=== PATIENT | male | born 1995 | race African-American/Black ===

== ENCOUNTER 2018-09-07 12:01 | Emergency (ER) | payer MEDICAID ==
[~2018-09-07] VITALS: Ht 167.6 cm; Wt 73.5 kg
[2018-09-07 12:10] VITALS: BP 116/72
--- NOTE | 2018-09-07 12:30 | NUR ---
ED Nurse Note: Patient presents to ER due to flu-like symptoms (cough with yellow sputum, chest congestion). Provided mask. No cough noted at this time. Reports no fever or chills. Patient tolerating oral intake without problem. Patient also c/o rash over the left upper arm spreading to back. hx of eczema. Reports no use of meds at this time. No facial griamcing or guarding noted.
[2018-09-07] MEDS ORDERED: PROMETHAZINE-D118 ML ORAL (13:40)
[2018-09-07] MEDS ORDERED: IBUPROFEN600 MG ORAL (13:40)
[2018-09-07] MEDS ORDERED: AMOXICILLIN500 MG ORAL (13:43)
[2018-09-07 13:50] VITALS: BP 116/72
--- NOTE | 2018-09-07 13:53 | NUR ---
ED Discharge Note: Patient is being discharged from medical care. Patient awake, alert, oriented x 4. Regular, unlabored breathing noted. D/C instruction and prescription given to patient. Patient verbalized understanding of it.
--- NOTE | 2018-09-07 14:16 | Diagnostic Imaging Report ---
EXAM: XR Chest, 1 View CLINICAL HISTORY: COUGH TECHNIQUE: Frontal view of the chest. COMPARISON: None FINDINGS: Hardware: None. Lungs/pleura: Normal. No focal consolidation. No pleural effusion or pneumothorax. Heart/mediastinum: Normal. No cardiomegaly. Soft tissues: Unremarkable. Bones: No acute fracture. Upper abdomen: Normal. IMPRESSION: No acute disease identified.
[2018-09-07] MEDS ORDERED: AFRIN NASAL SPR30 ML NASAL (15:10)
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
== END 2018-09-07 13:50 | disposition home or self-care (01) ==
LOC: EMR 13:10
DX: J02.9 Acute pharyngitis, unspecified (principal); S09.92XA Unspecified injury of nose, initial encounter; X58.XXXA Exposure to other specified factors, initial encounter; Y92.9 Unspecified place or not applicable
CPT/HCPCS: 71045; 99283

== ENCOUNTER 2018-09-20 12:13 | Emergency (ER) | payer MEDICAID ==
[~2018-09-20] VITALS: Ht 172.7 cm; Wt 68.0 kg
[~2018-09-20 12:13] MED LIST: AFRIN NASAL SPR30 ML NASAL; AMOXICILLIN500 MG ORAL; IBUPROFEN600 MG ORAL; PROMETHAZINE-D118 ML ORAL
[2018-09-20 12:17] VITALS: BP 115/60
[2018-09-20] MEDS ORDERED: PROAIR HFA8.5 GM INH (12:31)
[2018-09-20] MEDS ORDERED: PROMETHAZI6.25 MG/1 ORAL (12:31)
--- NOTE | 2018-09-20 12:31 | Emergency Room Report ---
History of Present Illness General Chief Complaint: Upper Respiratory Illness Source: Patient (Ricardo Webster) Present Illness HPI 23-year-old male with no significant past medical history here complaining of over 2 weeks of cough and congestion postnasal injury. Patient was seen here at [facility] on September 07, 2018 after a nasal injury and fracture was ruled out. Patient was diagnosed with pharyngitis and discharged with amoxicillin, Flonase, and advised to take [id number] decongestants. Patient however complains of worsening cough and phlegm production as well as nighttime wheezing. Patient denies smoking tobacco, marijuana, and all other drug use however marijuana can be smelled on him very clearly. Patient denies chest pain , shortness of breath, palpitation, abdominal pain, nausea vomiting. Denies all other associated symptoms and is up-to-date with immunization. (Ricardo Webster) Allergies: Coded Allergies: No Known Allergies (Unverified , 09/07/18) Patient History Past Medical History: see triage record Past Surgical History: unable to obtain Pertinent Family History: none Social History: Reports: smoking - marijuana Immunizations: UTD Reviewed Nursing Documentation: PMH: Agreed; PSxH: Agreed (Ricardo Webster) Nursing Documentation-PMH Past Medical History: No Stated History (Ricardo Webster) Review of Systems All Other Systems: negative except mentioned in HPI (Ricardo Webster) Physical Exam Vital Signs Date Time Temp Pulse Resp B/P (MAP) Pulse Ox O2 Delivery O2 Flow Rate FiO2 09/20/18 12:17 98.6 61 18 115/60 (78) 96 Room Air Sp02 EP Interpretation: reviewed, normal General Appearance: normal inspection, well appearing, no apparent distress, alert Head: normocephalic, atraumatic Eyes: bilateral eye normal inspection, bilateral eye PERRL ENT: normal ENT inspection, hearing grossly normal, normal pharynx, no angioedema, TMs + canals normal, uvula midline Neck: normal inspection, full range of motion, supple, no meningismus, no bony tend Respiratory: normal inspection, chest non-tender, lungs clear, normal breath sounds, no rhonchi, no retraction, no wheezing Cardiovascular #1: normal inspection, regular rate, rhythm, no murmur Gastrointestinal: normal inspection, non tender, soft, no mass Genitourinary: no CVA tenderness Musculoskeletal: normal inspection, back normal, digits/nails normal Neurologic: normal inspection, alert, oriented x3 Psychiatric: normal inspection, judgement/insight normal Skin: no rash, normal color Lymphatic: normal inspection, no adenopathy (Ricardo Webster) Medical Decision Making PA Attestation All my diagnosis and treatment plans were reviewed ad discussed with my supervising physician Dr. Clemente (Ricardo Webster) PA Attestation I discussed the care of the patient with Ricardo ORELLANA on 09/20/2018. I agree with the findings and plan as documented in the note. (Gurjit Clemente M.D.) Diagnostic Impression: Primary Impression: Upper respiratory infection ER Course 23-year-old male with no significant past medical history here complaining of over 2 weeks of cough and congestion postnasal injury. Patient was seen here at [place] [facility] on September 07, 2018 after a nasal injury and fracture was ruled out. Patient was diagnosed with pharyngitis and discharged with amoxicillin, Flonase, and advised to take [id number] decongestants. Patient however complains of worsening cough and phlegm production as well as nighttime wheezing. Patient denies smoking tobacco, marijuana, and all other drug use however marijuana can be smelled on him very clearly. Patient denies chest pain , shortness of breath, palpitation, abdominal pain, nausea vomiting. Denies all other associated symptoms and is up-to-date with immunization. Ddx considered but are not limited to: strep pharyngitis, URI, tonsilitis, peritonsillar absacess, influneza Vital signs: are WNL, pt. is afebrile H&PE are most consistent with: Upper respiratory infection ORDERS: Albuterol inhaler, Phenergan ED INTERVENTIONS: None required at this time. DISCHARGE: At this time pt. is stable for d/c to home. Will provide printed patient care instructions, and any necessary prescriptions. Care plan and follow up instructions have been discussed with the patient prior to discharge. I advised the patient to follow-up with her primary care provider as this is becoming chronic and he denies that he smokes marijuana however it is very clear that he does (Ricardo Webster) Last Vital Signs Date Time Temp Pulse Resp B/P (MAP) Pulse Ox O2 Delivery O2 Flow Rate FiO2 09/20/18 12:17 98.6 61 18 115/60 (78) 96 Room Air (Ricardo Webster) Disposition: HOME, SELF-CARE Condition: Stable Scripts Albuterol Sulfate* (PROAIR HFA*) 8.5 Gm Hfa.aer.ad 2 PUFFS INH Q6H, #8.5 GM 0 Refills Prov: Ricardo Webster 09/20/18 Promethazine Hcl (PROMETHAZINE HCL*) 6.25 Mg/5 Ml Syrup 5 ML ORAL Q6H, #120 ML 0 Refills Prov: Ricardo Webster 09/20/18 Patient Instructions: Upper Respiratory Infection, Adult Additional Instructions: Take medication as directed follow-up with the primary care provider if symptoms continue that he may be becoming chronic and you will need further assessment and referrals. Ricardo Webster Sep 20, 2018 12:31 Gurjit Clemente M.D. Sep 20, 2018 16:07
[2018-09-20 12:41] VITALS: BP 115/60
--- NOTE | 2018-09-20 12:42 | NUR ---
Patient was evaluated, treated and discharged with aftercare instructions by MD/PA
== END 2018-09-20 12:43 | disposition home or self-care (01) ==
LOC: EMR 12:40
DX: J06.9 Acute upper respiratory infection, unspecified (principal)
CPT/HCPCS: 99282

== ENCOUNTER 2018-10-01 10:34 | Emergency (ER) | payer MEDICAID ==
[~2018-10-01] VITALS: Ht 172.7 cm; Wt 68.0 kg
[~2018-10-01 10:34] MED LIST changes: +PROAIR HFA8.5 GM INH; +PROMETHAZI6.25 MG/1 ORAL
[2018-10-01 10:38] VITALS: BP 110/55
--- NOTE | 2018-10-01 10:43 | NUR ---
ED Nurse Note: Patient walked into ED in the need of doctor's note to clear him to work. patient reports he had a URI a week ago. patient reports it is getting better now. patient is alert awake x4 ambulatory breathing unlabored and even.
[2018-10-01] MEDS ORDERED: ADULT WAL-100 MG/5 M ORAL (11:01)
[2018-10-01 11:06] VITALS: BP 110/55
--- NOTE | 2018-10-01 11:06 | NUR ---
ER DISCHARGE NOTE: Patient is cleared to be discharged per ERMD DR CORONA, pt is aox4, on room air, with stable vital signs. pt was given dc and prescription instructions, pt was able to verbalize understanding, pt id band removed without complications. pt is able to ambulate with steady gait. pt took all belongings.
--- NOTE | 2018-10-01 11:07 | Emergency Room Report ---
History of Present Illness General Chief Complaint: Upper Respiratory Illness Source: Patient Present Illness HPI Patient is a 23-year-old male who presented for medical clearance. Patient had recent increased nasal congestion as well as cough. Patient had initially been having some sputum. This had resolved after antibiotic treatment. Patient reported having some cough at bedtime but does not have any daytime cough. 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 He denies any fevers or hemoptysis. Patient states he had been taking antibiotics and had finished a course. Allergies: Coded Allergies: No Known Allergies (Unverified , 09/07/18) Patient History Past Medical History: see triage record Reviewed Nursing Documentation: PMH: Agreed; PSxH: Agreed Nursing Documentation-PMH Past Medical History: No Stated History Review of Systems All Other Systems: negative except mentioned in HPI Physical Exam Vital Signs Date Time Temp Pulse Resp B/P (MAP) Pulse Ox O2 Delivery O2 Flow Rate FiO2 10/01/18 10:38 97.0 58 19 110/55 97 Room Air General Appearance: well appearing, no apparent distress, alert, GCS 15 Head: normocephalic, atraumatic ENT: hearing grossly normal, normal voice Neck: full range of motion, supple Respiratory: lungs clear, no respiratory distress, speaking full sentences Cardiovascular #1: normal inspection Musculoskeletal: normal inspection Neurologic: normal inspection, alert, oriented x3, responsive, vice president diversity III-XII nml as tested, normal gait Psychiatric: mood/affect normal Skin: no rash Medical Decision Making Diagnostic Impression: Primary Impression: Upper respiratory infection ER Course Patient presented for medical clearance. Differential diagnosis include was not limited to upper respiratory infection, allergic rhinitis, viral respiratory infection, pneumonia among others. Patient has a benign exam and does not appear to require any further imaging or laboratory testing at this time. Patient appears to be cleared for work. He does not appear to require any further medical treatment however he was given prescription for guaifenesin to take at bedtime for cough. He was advised to follow-up with his doctor as needed. Last Vital Signs Date Time Temp Pulse Resp B/P (MAP) Pulse Ox O2 Delivery O2 Flow Rate FiO2 10/01/18 10:47 58 19 Room Air 10/01/18 10:38 97.0 110/55 (73) 97 Status: improved Disposition: HOME, SELF-CARE Condition: Stable Scripts Guaifenesin* (ADULT WAL-TUSSIN*) 100 Mg/5 Ml Liquid 5 ML ORAL Q4H, #120 ML Prov: Venancio Solis MD 10/01/18 Patient Instructions: Upper Respiratory Infection, Adult Additional Instructions: Patient may return to work. Return if worse. Venancio Solis MD Oct 01, 2018 11:07
== END 2018-10-01 11:06 | disposition home or self-care (01) ==
LOC: EMR 11:05
DX: J06.9 Acute upper respiratory infection, unspecified (principal)
CPT/HCPCS: 99282